=== PATIENT | male | born 1975 | race Two or more races ===

== ENCOUNTER 2017-08-14 17:26 | Emergency (ER) | payer OTHER ==
[~2017-08-14] VITALS: Ht 149.9 cm; Wt 57.2 kg
[2017-08-14] MEDS ORDERED: ASPIR 8181 MG ORAL (17:37)
[2017-08-14 18:26] VITALS: BP 157/93
--- NOTE | 2017-08-14 20:26 | Emergency Room Report ---
History of Present Illness General Chief Complaint: General Complaint Source: Patient Present Illness [facility] The patient is a 42-year-old female presenting for needle stick injury which occurred at work today. She states that she was cleaning when an insulin needle penetrated her R index finger. She noticed some bleeding to the area. She is unsure of the patient's history. She states the pain is a 1/10 dull ache. Worse with touch. Last tetanus shot was 3 months prior She denies any other symptoms Allergies: Coded Allergies: No Known Allergies (Unverified , 08/14/17) Patient History Past Medical History: see triage record Pertinent Family History: none Immunizations: UTD Reviewed Nursing Documentation: PMH: Agreed, PSxH: Agreed Nursing Documentation-PMH Past Medical History: No Stated History Hx Hypertension: Yes Review of Systems All Other Systems: negative except mentioned in HPI Physical Exam Vital Signs Date Time Temp Pulse Resp B/P (MAP) Pulse Ox O2 Delivery O2 Flow Rate FiO2 08/14/17 17:31 98.8 68 17 157/93 100 Room Air 98.8 Sp02 EP Interpretation: reviewed, normal General Appearance: no apparent distress, alert, GCS 15, non-toxic Head: normocephalic, atraumatic Eyes: bilateral eye normal inspection, bilateral eye PERRL ENT: hearing grossly normal, normal voice Musculoskeletal: normal range of motion, tender - R distal index finger Neurologic: alert, oriented x3, responsive, motor strength/tone normal, sensory intact, speech normal Psychiatric: judgement/insight normal, memory normal, mood/affect normal, no suicidal/homicidal ideation Skin: other - Distal R index finger has small puncture wound. Medical Decision Making PA Attestation Dr. Mccloud is my supervising physician. Patient management was discussed with my supervising physician Diagnostic Impression: Primary Impression: Needle stick injury ER Course The patient is a 42-year-old female presenting for needle stick injury which occurred at work today. Differential diagnoses considered but not limited to: needle stick injury, abrasion, laceration, among others PE: NAD Distal R index finger has small puncture wound. No edema. No active bleeding. The area is thoroughly cleaned with Betadine and normal saline Labs are drawn for hepatitis and HIV Patient will be discharged home and was told she needs to followup with worker' s comp and primary doctor. ER precautions are given Last Vital Signs Date Time Temp Pulse Resp B/P (MAP) Pulse Ox O2 Delivery O2 Flow Rate FiO2 08/14/17 18:26 98.8 68 17 157/93 100 Room Air 98.8 Status: improved Disposition: HOME, SELF-CARE Condition: Improved Referrals: OTHER,REFERRING (PCP) Patient Instructions: Needle Stick Injury Additional Instructions: I discussed my findings with the patient. All questions and concerns have been answered. Treatment and medication compliance have been addressed. I advised the patient that they need to follow up with PMD in 3-5 days. Return to ED if symptoms worsen, new symptoms arise, or if needed for any reason. Patient verbalized understanding of discharge instructions. JOSE MIGUEL ANDREA Aug 14, 2017 20:26
== END 2017-08-14 18:28 | disposition home or self-care (01) ==
LOC: EMR 18:00
DX: S61.230A Puncture wound without foreign body of right index finger without damage to nail, initial encounter (principal); I10 Essential (primary) hypertension; W46.0XXA Contact with hypodermic needle, initial encounter; Y93.E9 Activity, other interior property and clothing maintenance; Y92.9 Unspecified place or not applicable; Y99.0 Civilian activity done for income or pay
CPT/HCPCS: 86703; 86803; 87517; 99283